=== PATIENT | female | born 1935 | race Caucasian/White ===

== ENCOUNTER → 2019-05-07 | Outpatient (CLI) | payer OTHER ==
[~2019-05-07] MED LIST: ACETAMINOPHEN-1 EAC1 PO; CALCIUM 600 +1 EAC1 PO; CARDIZEM CD120 MG PO; CENTRUM SILVER1 EAC5 PO; CO Q-10100 MG PO; CRESTOR10 MG PO; DETROL2 M1 PO; DIOVAN 80 MG TA80 M1 PO; DIOVAN HCT 80-1 EACH PO; ELIQUIS5 MG PO; LOPRESSOR25 PO; MELATONIN3 MG PO; MULTIVITAMINS; MYRBETRIQ50 MG PO; OSTEO BI-FLEX1 EAC1 PO; PLAVIX 75 MG TA75 M1 PO; PROPAFENONE HC225 M1 PO; RYTHMOL SR425 MG PO; VALSARTAN80 MG PO
== END ==
LOC: SJCVCIMAG 09:13
DX: I65.23 Occlusion and stenosis of bilateral carotid arteries (principal); I08.0 Rheumatic disorders of both mitral and aortic valves; I45.10 Unspecified right bundle-branch block; I44.0 Atrioventricular block, first degree; I11.9 Hypertensive heart disease without heart failure; I48.0 Paroxysmal atrial fibrillation; E78.5 Hyperlipidemia, unspecified; Z79.01 Long term (current) use of anticoagulants; Z79.82 Long term (current) use of aspirin; Z79.899 Other long term (current) drug therapy

== ENCOUNTER → 2019-07-02 | Outpatient (CLI) | payer OTHER | LOC: SJCVC 11:59 | DX: R94.31 Abnormal electrocardiogram [ECG] [EKG] (principal); I45.10 Unspecified right bundle-branch block; I44.0 Atrioventricular block, first degree; I48.0 Paroxysmal atrial fibrillation; I10 Essential (primary) hypertension; E78.5 Hyperlipidemia, unspecified; I65.23 Occlusion and stenosis of bilateral carotid arteries; Z79.899 Other long term (current) drug therapy ==

== ENCOUNTER → 2019-07-23 | Outpatient (CLI) | payer OTHER | LOC: SJCVCIMAG 11:41 | PROVIDERS: ATTEND Internal Medicine | DX: I45.10 Unspecified right bundle-branch block (principal); I48.91 Unspecified atrial fibrillation; I10 Essential (primary) hypertension; E78.5 Hyperlipidemia, unspecified; Z79.82 Long term (current) use of aspirin; Z79.899 Other long term (current) drug therapy; Z88.8 Allergy status to other drugs, medicaments and biological substances ==

== ENCOUNTER → 2019-08-03 | Outpatient (CLI) | payer OTHER | LOC: SJCVC 13:42 | PROVIDERS: ATTEND Internal Medicine | DX: I48.0 Paroxysmal atrial fibrillation (principal); I10 Essential (primary) hypertension; E78.5 Hyperlipidemia, unspecified; I65.23 Occlusion and stenosis of bilateral carotid arteries; Z79.899 Other long term (current) drug therapy ==

== ENCOUNTER → 2019-08-10 | Outpatient (CLI) | payer OTHER ==
[2019-08-10 07:52] VITALS: BP 177/58
--- NOTE | 2019-08-11 08:42 | CATHLAB ---
[facility] [place] [address] INVASIVE PROCEDURE REPORT Name: DOMINIC TALLEY Room #: [facility].#: [id number] Admission: 08/10/19 Attend Phys: Demar Rodriguez MD, Discharge: Date of : 37 Report #: [id number] THIS REPORT FOR: cc: Nelson Dodd MD,Nelson Rodriguez,Demar Porras MD [facility] ~ CC: Demar Dodd DATE OF SERVICE: 08/10/2019 LINQ IMPLANTABLE LOOP RECORDER INDICATION: Atrial fibrillation near syncope. DESCRIPTION OF PROCEDURE: The potential benefits and risks were discussed with the patient who understood. Full written and informed consent was obtained. The patient was prepped and draped in a sterile fashion. The fourth intercostal space was infiltrated with 1% lidocaine. A 1 cm incision was made with placement of a Medtronic implantable loop recorder, model #11466, serial #[id number]. A single bioabsorbable stitch was placed, dressing was placed over this. She tolerated the procedure well and was discharged home in stable condition. <ELECTRONICALLY SIGNED> By: Demar Rodriguez MD, [facility] 08/11/19 [id number] Demar Rodriguez MD, FACC /nt
== END | disposition home or self-care (01) ==
LOC: CATH 06:59
PROVIDERS: ATTEND Internal Medicine
DX: I48.91 Unspecified atrial fibrillation (principal); R55 Syncope and collapse; Z98.890 Other specified postprocedural states; Z79.899 Other long term (current) drug therapy; Z79.01 Long term (current) use of anticoagulants

== ENCOUNTER → 2019-08-22 | Outpatient (CLI) | payer OTHER | LOC: SJCVC 14:25 | PROVIDERS: ATTEND Internal Medicine | DX: I48.0 Paroxysmal atrial fibrillation (principal); I11.0 Hypertensive heart disease with heart failure; I50.32 Chronic diastolic (congestive) heart failure; E78.5 Hyperlipidemia, unspecified; I65.23 Occlusion and stenosis of bilateral carotid arteries ==

== ENCOUNTER → 2019-11-14 | Outpatient (CLI) | payer OTHER | LOC: SJCVC 12:49 | PROVIDERS: ATTEND Internal Medicine | DX: I48.0 Paroxysmal atrial fibrillation (principal); I44.0 Atrioventricular block, first degree; R00.1 Bradycardia, unspecified; I11.0 Hypertensive heart disease with heart failure; I50.32 Chronic diastolic (congestive) heart failure; I65.23 Occlusion and stenosis of bilateral carotid arteries; E78.5 Hyperlipidemia, unspecified; Z79.899 Other long term (current) drug therapy ==

== ENCOUNTER → 2020-02-19 | Outpatient (CLI) | payer OTHER | LOC: SJCVC 08:54 | PROVIDERS: ATTEND Internal Medicine Cardiovascular Disease | DX: I48.0 Paroxysmal atrial fibrillation (principal); R00.1 Bradycardia, unspecified; I44.2 Atrioventricular block, complete; I11.0 Hypertensive heart disease with heart failure; I50.30 Unspecified diastolic (congestive) heart failure; Z88.8 Allergy status to other drugs, medicaments and biological substances; Z79.01 Long term (current) use of anticoagulants; Z79.899 Other long term (current) drug therapy; Z85.3 Personal history of malignant neoplasm of breast ==

== ENCOUNTER → 2020-02-22 | Outpatient (CLI) | payer OTHER ==
[~2020-02-22] MED LIST changes: +ATENOLOL 25 MG25 M1 PO; +BENICAR40 MG PO; +DESYREL150 MG PO; +DILTIAZEM ER120 MG PO; +HYDROCHLOROTH12.5 M2 PO; +KLOR-CON 1010 MEQ PO; +ROSUVASTATIN CA20 MG PO; +TORSEMIDE10 MG PO
== END ==
LOC: LAB 02-21 09:00
PROVIDERS: ATTEND Internal Medicine Cardiovascular Disease
DX: Z01.812 Encounter for preprocedural laboratory examination (principal); Z20.828 Contact with and (suspected) exposure to other viral communicable diseases

== ENCOUNTER 2020-02-27 06:22 | Observation (INO) | payer OTHER ==
[~2020-02-27] VITALS: Ht 157.5 cm; Wt 51.7 kg
[2020-02-27] VITALS (9 sets, daily range): BP systolic 141–175; BP diastolic 65–117
[~2020-02-27 06:22] MED LIST changes: -ATENOLOL 25 MG25 M1 PO; -BENICAR40 MG PO; -DESYREL150 MG PO; -DILTIAZEM ER120 MG PO; -HYDROCHLOROTH12.5 M2 PO; -KLOR-CON 1010 MEQ PO; -ROSUVASTATIN CA20 MG PO; -TORSEMIDE10 MG PO
[2020-02-27 07:32] LABS: ABSOLUTE NEUTROPHILS 4.6 thou/uL (1.4-8.2); BASOPHILS 0.7 % (0.0-2.0); EOSINOPHILS 6.1 % (0.0-3.0); HEMATOCRIT 39.6 % (37.0-47.0); HEMOGLOBIN 12.8 gm/dL (12.0-15.0); MCH 29.1 pg (26.0-34.0); MCHC 32.3 g/dL (28.0-37.0); MCV 89.9 fL (80.0-100.0); MONOCYTES 7.6 % (1.0-8.0); PLATELET COUNT 239 thou/uL (150-400); POLYS 74.6 % (36.0-66.0); RBC 4.41 mil/uL (4.20-5.00); RDW 14.9 % (10.5-14.5); WBC 6.2 thou/uL (4.0-11.0)
[2020-02-27 08:00] LABS: CALCIUM 9.8 mg/dL (8.5-10.1); CREATININE 0.9 mg/dL (0.6-1.0); POTASSIUM 3.9 mmol/L (3.5-5.1)
[2020-02-27] MEDS ORDERED: BENICAR40 MG PO (08:01)
[2020-02-27] MEDS ORDERED: DILTIAZEM ER120 MG PO (08:03)
[2020-02-27] MEDS ORDERED: ATENOLOL 25 MG25 M1 PO (08:05)
[2020-02-27] MEDS ORDERED: KLOR-CON 1010 MEQ PO (08:06)
[2020-02-27] MEDS ORDERED: ROSUVASTATIN CA20 MG PO (08:06)
[2020-02-27 08:07] LABS: ALBUMIN 3.9 g/dL (3.4-5.0); TOTAL BILIRUBIN 0.4 mg/dL (0.2-1.0); TOTAL PROTEIN 7.5 g/dL (6.4-8.2)
[2020-02-27 08:08] LABS: APTT 26.4 Seconds (24.5-32.8); PROTIME 10.1 Seconds (9.3-11.4)
[2020-02-27] MEDS ORDERED: TORSEMIDE10 MG PO (08:08)
[2020-02-27] MEDS ORDERED: HYDROCHLOROTH12.5 M2 PO (08:09)
[2020-02-27] MEDS ORDERED: DESYREL150 MG PO (08:10)
--- NOTE | 2020-02-27 20:42 | NUR ---
PT. ARRIVED AT FLOOR AFTER 1400; PT. AOX4; NO C/O PAIN; EDUCATED ABOUT BED REST; EDUCATED ABOUT KEEPING LUE IMMOBILIZED; ST. UNDERSTANDING; APACED ON THE MONITOR DURING ARRIVAL; DURING THE AFTERNOON SR ON THE MONITOR; SBP ELEVATED; PER REPORT METOPROLOL GIVEN BEFORE ARRIVAL TO FLOOR; BP ON THE 150-160s; PHYSICIAN NOTIFIED; ORDERS RECEIVED; DAILY MEDICATIONS GIVEN; REASSESSMENT 150s; REQUESTED PRN PAIN MEDICATION DURING THE AFTERNOON; MEDICATION GIVEN; RE-ASSESSMENT ST. DECREASE PAIN; ASSESSMENT CHARGED; FOLLOWING POC; PASSED ON REPORT;
[2020-02-28 00:31] VITALS: BP 124/61
[2020-02-28 04:45] VITALS: BP 130/58
[2020-02-28 07:58] VITALS: BP 176/75
--- NOTE | 2020-02-28 08:35 | NUR ---
SLEPT MOST OF SHIFT. ASSIST TO BATHROOM. LEFT ARM IMOBILIZER REMAINS IN PLACE. PM SITE WITHOUT DRAINAGE. PAIN MEDICATION GIVEN FOR SLEEP AND DENIES NEED FOR MEDICATION THIS AM. AWAITING DR AND XRAY WITH HOPES OF DISCHARGE. PROGRESSING TOWARDS DISCHARGE GOALS.
[2020-02-28 11:39] VITALS: BP 176/75
--- NOTE | 2020-02-29 11:17 | P ---
[facility] [place] [address] PROCEDURE REPORT Name: DOMINIC TALLEY Room #: 210-P [facility] Alfredito M.RRae#: [id number] Admission: 02/27/20 Attend Phys: Lazaro Casillas MD Discharge: 02/28/20 Date of : 37 Report #: [id number] THIS REPORT FOR: cc: Sergio Moy MD, Logan F. MD Couchonnal, Luis F. MD ~ DATE OF SERVICE: 02/27/2020 PROCEDURE: Pacemaker implantation. PREOPERATIVE DIAGNOSES: 1. Intermittent complete heart block. 2. Atrial fibrillation. 3. Tachycardia-bradycardia syndrome. HISTORY: The patient is an 84-year-old female with a history of atrial fibrillation, status post implantable loop recorder, which shows intermittent episodes of complete heart block. She is here for dual-chamber pacemaker implantation. ANESTHESIA: The patient underwent MAC anesthesia with no anesthesia related complications. DESCRIPTION OF PROCEDURE: The patient underwent informed consent. We discussed the details of the procedure including the risks, which include but not limited to bleeding, infection, vascular damage, cardiac perforation and pneumothorax. She understood these risks and is willing to proceed. The patient was brought to EP laboratory in fasting and sedated state, prepped and draped in a sterile fashion, received IV antibiotics and underwent a venogram showing patency of the left axillary vein. Next, lidocaine was injected below the level of left clavicle. Incision was made, pocket was created over the prepectoral fascia and access was obtained twice to left axillary vein using the extrathoracic approach with sheaths positioned using the modified Seldinger technique. Under fluoroscopy, leads were positioned in the right atrial appendage and right ventricular apex with adequate pacing and sensing thresholds. The leads were sutured to the prepectoral fascia. Device was connected. Tug test performed. Pocket was irrigated with vancomycin. Pocket closed in 2 layers using 2-0 for the deep layer, 3-0 for the mid layer and surgical glue was placed to outer skin layer. The patient awoke neurologically and hemodynamically intact. No complications and no significant bleeding. The implanted pacemaker was a Medtronic model #W3DR01, serial #[id number]. Atrial lead was a 5076, 45 cm, serial #[id number] and the ventricular lead was a [facility] [address] [address] PROCEDURE REPORT Name: GERRIDOMINIC GONZALEZ Room #: [address] [place] [address] Alfredito M.Rae#: [id number] Admission: 02/27/20 Attend Phys: Lazaro Casillas MD Discharge: 02/28/20 Date of : 37 Report #: [id number] 5076, 52 cm, serial #[id number]. Atrial lead demonstrated P-wave of 2 millivolts, pacing impedance 400 ohms, pacing threshold 0.8 volts at 0.4 milliseconds. RV lead demonstrated R waves of 7 millivolts, pacing impedance 684 ohms, pacing threshold 0.7 volts at 0.4 milliseconds. The device was programmed to the DDDR 60-130 mode. CONCLUSIONS: Successful dual-chamber pacemaker implantation with satisfactory atrial and ventricular pacing and sensing thresholds. <ELECTRONICALLY SIGNED> By: Lazaro Casillas MD 02/29/20 1117 [id number] Lazaro Casillas MD /nt
== END 2020-02-28 11:55 | disposition home or self-care (01) ==
LOC: CATH 06:22 → 2N 14:18
PROVIDERS: ADMIT Internal Medicine Cardiovascular Disease; ATTEND Internal Medicine Cardiovascular Disease
DX: I44.2 Atrioventricular block, complete (principal); I48.91 Unspecified atrial fibrillation; I10 Essential (primary) hypertension; E78.5 Hyperlipidemia, unspecified; I65.29 Occlusion and stenosis of unspecified carotid artery; R79.89 Other specified abnormal findings of blood chemistry; R09.02 Hypoxemia; I49.5 Sick sinus syndrome; Z85.9 Personal history of malignant neoplasm, unspecified
CPT/HCPCS: 62110; 62900; 70005

== ENCOUNTER → 2020-03-05 | Outpatient (CLI) | payer OTHER ==
[~2020-03-05] MED LIST changes: +ATENOLOL 25 MG25 M1 PO; +BENICAR40 MG PO; +DESYREL150 MG PO; +DILTIAZEM ER120 MG PO; +HYDROCHLOROTH12.5 M2 PO; +KLOR-CON 1010 MEQ PO; +ROSUVASTATIN CA20 MG PO; +TORSEMIDE10 MG PO
== END ==
LOC: SJCVC 14:25
PROVIDERS: ATTEND Internal Medicine Cardiovascular Disease
DX: I49.5 Sick sinus syndrome (principal); I48.0 Paroxysmal atrial fibrillation; I10 Essential (primary) hypertension; I44.2 Atrioventricular block, complete; E78.5 Hyperlipidemia, unspecified; Z95.0 Presence of cardiac pacemaker; Z79.899 Other long term (current) drug therapy; Z98.890 Other specified postprocedural states; Z82.49 Family history of ischemic heart disease and other diseases of the circulatory system

== ENCOUNTER → 2020-05-28 | Outpatient (CLI) | payer OTHER | LOC: SJCVC 13:40 | PROVIDERS: ATTEND Internal Medicine | DX: R94.31 Abnormal electrocardiogram [ECG] [EKG] (principal); I48.0 Paroxysmal atrial fibrillation; I44.2 Atrioventricular block, complete; I50.32 Chronic diastolic (congestive) heart failure; E78.5 Hyperlipidemia, unspecified; I65.23 Occlusion and stenosis of bilateral carotid arteries; Z95.0 Presence of cardiac pacemaker; Z98.890 Other specified postprocedural states; Z88.8 Allergy status to other drugs, medicaments and biological substances; Z79.01 Long term (current) use of anticoagulants; Z79.899 Other long term (current) drug therapy; Z82.49 Family history of ischemic heart disease and other diseases of the circulatory system ==

== ENCOUNTER → 2020-12-11 | Outpatient (CLI) | payer OTHER | LOC: SJCVC 13:53 | PROVIDERS: ATTEND Internal Medicine | DX: I48.0 Paroxysmal atrial fibrillation (principal); I50.32 Chronic diastolic (congestive) heart failure; I11.0 Hypertensive heart disease with heart failure; E78.5 Hyperlipidemia, unspecified; I65.23 Occlusion and stenosis of bilateral carotid arteries; Z72.89 Other problems related to lifestyle; Z88.8 Allergy status to other drugs, medicaments and biological substances; Z79.899 Other long term (current) drug therapy ==